=== PATIENT | female | born 1945 | race American Indian/Alaskan Native ===

== ENCOUNTER 2018-05-23 08:44 | Day surgery (SDC) | payer MEDICARE, MEDICAID ==
[2018-05-23 09:27] VITALS: BMI 22.5
[2018-05-23] MEDS ORDERED: Propofol 10 mg/ml Inj (20 ML) ONE ×2 (10:10→10:50)
[2018-05-23 14:49] VITALS: TEMP 98
[2018-05-23 14:50] VITALS: O2SAT 100
[2018-05-23 14:51] VITALS: RESP 17
[2018-05-23 15:02] VITALS: BP 142/53; PULSE 87
== END 2018-05-23 13:05 ==
LOC: C.ENDO 08:44
PROVIDERS: ATTEND Internal Medicine Gastroenterology
DX: K29.50 Unspecified chronic gastritis without bleeding (principal); B96.81 Helicobacter pylori [H. pylori] as the cause of diseases classified elsewhere; K64.1 Second degree hemorrhoids; K63.5 Polyp of colon; R97.0 Elevated carcinoembryonic antigen [CEA]; R63.4 Abnormal weight loss; R68.81 Early satiety
CPT/HCPCS: 43239; 45385; 82948; 88305; C1773; J2001; J2704